=== PATIENT | female | born 1975 | race Caucasian/White ===

== ENCOUNTER 2018-03-31 18:15 | Emergency (ER) | payer MEDICAID ==
[~2018-03-31] VITALS: Ht 154.9 cm; Wt 49.0 kg
[2018-03-31] MEDS ORDERED: LEVO100T10 PO (18:41)
[2018-03-31] MEDS ORDERED: ACET-2154 PO (18:41)
[2018-03-31] MEDS ORDERED: LEVE1000 PO (18:41)
--- NOTE | 2018-03-31 19:08 | NUR ---
Assumed care of patient. no acute distress noted. VSS
--- NOTE | 2018-03-31 19:15 | NUR ---
ER AT BEDSIDE
--- NOTE | 2018-03-31 19:25 | NUR ---
Patient discharged to home in stable conditon. Written and verbal after care instructions given. Patient verbalizes understanding of instructions. aMBULATED FROM er WITH STABLE GAIT. ALL BELONGINGS WITH PATIENT. VSS
[2018-03-31 19:28] VITALS: BP 124/70
== END 2018-03-31 19:28 | disposition home or self-care (01) ==
LOC: ER 18:18
DX: S01.01XD Laceration without foreign body of scalp, subsequent encounter (principal); Z79.899 Other long term (current) drug therapy; W19.XXXD Unspecified fall, subsequent encounter
CPT/HCPCS: A4663